=== PATIENT | male | born 1950 | race Caucasian/White ===

== ENCOUNTER → 2016-09-27 | Outpatient (CLI) | payer MEDICARE, OTHER | END | disposition home or self-care (01) | LOC: RAD 15:21 | PROVIDERS: ATTEND Internal Medicine Hematology & Oncology | DX: R07.81 Pleurodynia (principal); R07.89 Other chest pain; C43.9 Malignant melanoma of skin, unspecified | CPT/HCPCS: 71020 ==

== ENCOUNTER → 2016-11-14 | Outpatient (CLI) | payer MEDICARE, OTHER ==
[~2016-11-14] MED LIST: OMNIPAQUE 350 MG/ML, 100ML BOTTLE ONE
== END | disposition home or self-care (01) ==
LOC: CFH 07:47
PROVIDERS: ATTEND Internal Medicine Hematology & Oncology
DX: C43.9 Malignant melanoma of skin, unspecified (principal); R91.8 Other nonspecific abnormal finding of lung field; K80.20 Calculus of gallbladder without cholecystitis without obstruction
CPT/HCPCS: 71260; 74177; Q9967

== ENCOUNTER → 2017-01-08 | Outpatient (CLI) | payer MEDICARE, OTHER ==
[~2017-01-08] MED LIST changes: +GADOBUTROL 10 MMOL/10 ML PFS ONE; -OMNIPAQUE 350 MG/ML, 100ML BOTTLE ONE
== END | disposition home or self-care (01) ==
LOC: CFH 06:36
PROVIDERS: ATTEND Internal Medicine Hematology & Oncology
DX: C43.9 Malignant melanoma of skin, unspecified (principal); D18.09 Hemangioma of other sites; R90.82 White matter disease, unspecified
CPT/HCPCS: 70553; A9585

== ENCOUNTER → 2017-03-08 | Outpatient (CLI) | payer MEDICARE, OTHER ==
[~2017-03-08] MED LIST changes: -GADOBUTROL 10 MMOL/10 ML PFS ONE; +OMNIPAQUE 350 MG/ML, 100ML BOTTLE ONE
== END | disposition home or self-care (01) ==
LOC: CFH 12:42
PROVIDERS: ATTEND Internal Medicine Hematology & Oncology
DX: R91.8 Other nonspecific abnormal finding of lung field (principal); K76.9 Liver disease, unspecified; K76.0 Fatty (change of) liver, not elsewhere classified; I70.0 Atherosclerosis of aorta; K82.8 Other specified diseases of gallbladder
CPT/HCPCS: 71260; 74177; Q9967

== ENCOUNTER → 2017-03-20 | Outpatient (CLI) | payer MEDICARE, OTHER | END | disposition home or self-care (01) | LOC: RAD 12:36 | PROVIDERS: ATTEND Internal Medicine Hematology & Oncology | DX: C45.9 Mesothelioma, unspecified (principal); C43.9 Malignant melanoma of skin, unspecified | CPT/HCPCS: 36598; 76000; J1642 ==

== ENCOUNTER → 2017-07-23 | Outpatient (CLI) | payer MEDICARE, OTHER | END | disposition home or self-care (01) | LOC: RAD 08:38 | PROVIDERS: ATTEND Internal Medicine Hematology & Oncology | DX: K80.20 Calculus of gallbladder without cholecystitis without obstruction (principal); R91.8 Other nonspecific abnormal finding of lung field; K76.0 Fatty (change of) liver, not elsewhere classified; I70.0 Atherosclerosis of aorta; N40.0 Benign prostatic hyperplasia without lower urinary tract symptoms | CPT/HCPCS: 71260; 74177; Q9967 ==

== ENCOUNTER 2017-10-13 08:45 | Inpatient (IN) | payer MEDICARE ==
[~2017-10-13] VITALS: Ht 177.8 cm; Wt 85.0 kg
[2017-10-13] MEDS ORDERED: OMEP-110 PO (09:17)
[2017-10-13] MEDS ORDERED: GEMF600T3 PO (09:17)
[2017-10-13] MEDS ORDERED: LISI1TAB5 PO (09:17)
[2017-10-13] MEDS ORDERED: NIVO240V IV (09:17)
[2017-10-13] MEDS ORDERED: GLIM4TAB2 PO (09:17)
[2017-10-13] MEDS ORDERED: CHOL200021 PO (09:17)
[2017-10-13] MEDS ORDERED: MAGN400T36 PO (09:17)
[2017-10-13] MEDS ORDERED: GLUC-20 PO (09:17)
[2017-10-13] MEDS ORDERED: INSU100V8 SQ (09:17)
[2017-10-13] MEDS ORDERED: METF500T4 PO (09:17)
[2017-10-13] MEDS ORDERED: SITA100T PO (09:17)
[2017-10-13] MEDS ORDERED: ONDANSETRON ODT 4 MG ONE (10:04)
[2017-10-13 10:11] LABS: BASOPHILS # (AUTO) 0.01 x10^3/uL (0-0.1); BASOPHILS % (AUTO) 0 % (0-1); EOSINOPHILS # (AUTO) 0.05 x10^3/uL (0-0.4); EOSINOPHILS % (AUTO) 0 % (1-7); LYMPHOCYTES # (AUTO) 1.01 x10^3/uL (1-3.4); LYMPHOCYTES % (AUTO) 8 % (22-44); MD NO; MEAN CORPUSCULAR HEMOGLOBIN 28.5 pg (27.5-34.5); MEAN CORPUSCULAR HGB CONC 33.4 g/dL (33.2-36.2); MEAN CORPUSCULAR VOLUME 85.3 fL (81-97); MEAN PLATELET VOLUME 9.8 fL (7.4-10.4); MONOCYTES # (AUTO) 0.34 x10^3/uL (0.2-0.8); MONOCYTES % (AUTO) 3 % (2-9); NEUTROPHILS # (AUTO) 11.96 x10^3/uL (1.8-6.8); NEUTROPHILS % (AUTO) 89 % (42-75); PLATELET COUNT 250 x10^3/uL (130-400); RED BLOOD COUNT 5.31 x10^6/uL (4.38-5.82); RED CELL DISTRIBUTION WIDTH 14.1 % (9.4-14.8)
[2017-10-13 10:20] LABS: ALBUMIN 3.9 g/dL (3.4-5.0); ANION GAP 11 mmol/L (5-15); CALCIUM 9.5 mg/dL (8.5-10.1); CHLORIDE 103 mmol/L (98-107); CREATININE 1.36 mg/dL (0.7-1.3)
[2017-10-13] MEDS ORDERED: MECLIZINE CHEWABLE 25 MG TAB ONE (10:53)
[2017-10-13] MEDS ORDERED: DIAZEPAM 5 MG/ML, 2ML IVPush ONE (11:00)
[2017-10-13] MEDS ORDERED: ONDANSETRON ODT 4 MG PO ONE (11:00)
[2017-10-13] MEDS ORDERED: MECLIZINE CHEWABLE 25 MG TAB PO ONE (11:00)
[2017-10-13] MEDS ORDERED: SODIUM CHLORIDE 0.9% 1,000 ML IV ONE ×3 (11:00→12:02)
[2017-10-13] MEDS ORDERED: SODIUM CHLORIDE FLUSH 10ML SYR IVF PRN (12:00)
[2017-10-13] MEDS ORDERED: NS + 20MEQ KCL 1,000 ML IV SCH (13:09)
[2017-10-13] MEDS ORDERED: POLYETHYLENE GLYCOL 17 GM PACKET PO PRN (13:30)
[2017-10-13] MEDS ORDERED: MECLIZINE 12.5 MG TABLET PO PRN (13:30)
[2017-10-13] MEDS ORDERED: ACETAMINOPHEN 325 MG TABLET PO PRN (13:30)
[2017-10-13] MEDS ORDERED: morphine SULFATE 10 MG/ML, 1ML IVPush PRN (13:30)
[2017-10-13] MEDS ORDERED: GLUCAGON 1 MG IM PRN (13:30)
[2017-10-13] MEDS ORDERED: DOCUSATE 100 MG CAPSULE PO PRN (13:30)
[2017-10-13] MEDS ORDERED: HYDROcodone/APAP 5/325 TABLET PO PRN (13:30)
[2017-10-13] MEDS ORDERED: DEXTROSE 50%, 50ML SYRINGE IVPush PRN (13:30)
[2017-10-13] MEDS ORDERED: ONDANSETRON 2MG/ML, 2ML IVPush PRN (13:30)
[2017-10-13] MEDS: ENOXAPARIN 40 MG/0.4 ML SQ SCH (13:30)
[2017-10-13] MEDS ORDERED: DEXTROSE 4 GM TAB.CHEW PO PRN (13:30)
[2017-10-13] MEDS: INSULIN GLARGINE 100 UNITS/ML, PEN SQ-INSULIN SCH ×2 (13:30→21:37)
[2017-10-13] MEDS ORDERED: GADOBUTROL 7.5 MMOL/7.5 ML PFS ONE (14:29)
[2017-10-13 14:42] VITALS: BP 145/69
[2017-10-13] MEDS: INSULIN LISPRO 100 UNITS/ML, PEN SQ-INSULIN SCH ×2 (15:44→21:00)
[2017-10-13 19:21] VITALS: BP 138/80
[2017-10-13 19:22] VITALS: BP 138/80
[2017-10-13] MEDS: FAMOTIDINE 20 MG TABLET PO SCH (21:35)
[2017-10-13] MEDS: GEMFIBROZIL 600 MG TABLET PO SCH (21:35)
[2017-10-13] MEDS: metFORMIN 500 MG TABLET PO SCH (21:36)
[2017-10-13] MEDS: SODIUM CHLORIDE FLUSH 10ML SYR IVF SCH (21:36)
[2017-10-13 21:55] LABS: MICROSCOPIC NOT IND
[2017-10-13 22:03] LABS: CULTURE INDICATED? NO
[2017-10-14 01:01] VITALS: BP 147/83
[2017-10-14 05:55] LABS: ANION GAP 8 mmol/L (5-15); CHLORIDE 109 mmol/L (98-107); CREATININE 0.92 mg/dL (0.7-1.3)
[2017-10-14 06:41] VITALS: BP 148/84
[2017-10-14] MEDS: INSULIN LISPRO 100 UNITS/ML, PEN SQ-INSULIN SCH ×3 (07:00→16:00)
[2017-10-14] MEDS: metFORMIN 500 MG TABLET PO SCH (08:36)
[2017-10-14] MEDS: FAMOTIDINE 20 MG TABLET PO SCH (08:36)
[2017-10-14] MEDS: GEMFIBROZIL 600 MG TABLET PO SCH (08:36)
[2017-10-14] MEDS: SODIUM CHLORIDE FLUSH 10ML SYR IVF SCH (08:38)
[2017-10-14] MEDS ORDERED: SITAGLIPTIN 50MG TABLET PO SCH (09:00)
[2017-10-14] MEDS ORDERED: SENNA/DOCUSATE TABLET PO SCH (09:00)
[2017-10-14] MEDS ORDERED: GLIMEPIRIDE 4 MG TABLET PO SCH (09:00)
[2017-10-14] MEDS ORDERED: MAGNESIUM OXIDE 400 MG TABLET PO SCH (09:00)
[2017-10-14] MEDS: ENOXAPARIN 40 MG/0.4 ML SQ SCH (11:48)
[2017-10-14 13:14] VITALS: BP 156/88
[2017-10-14] MEDS ORDERED: EXEN2PEN SQ-INSULIN (16:17)
== END 2017-10-14 16:30 | disposition home or self-care (01) | DRG 91 ==
LOC: ED 11:51 → EDIP 12:00 → 3NW 14:39
PROVIDERS: ADMIT Hospitalist; ATTEND Family Medicine
DX: R27.0 Ataxia, unspecified (principal); N17.0 Acute kidney failure with tubular necrosis; C43.9 Malignant melanoma of skin, unspecified; Z66 Do not resuscitate; E78.5 Hyperlipidemia, unspecified; D18.00 Hemangioma unspecified site; E78.00 Pure hypercholesterolemia, unspecified; E11.65 Type 2 diabetes mellitus with hyperglycemia; Z85.820 Personal history of malignant melanoma of skin
CPT/HCPCS: 36415; 70450; 70553; 71045; 80048; 81003; 82040; 82962; 83735; 85025; 93005; A9585; J3480; Q0162; 92523-GN; J7030

== ENCOUNTER → 2017-10-23 | Outpatient (CLI) | payer MEDICARE ==
[~2017-10-23] MED LIST changes: +CHOL200021 PO; +EXEN2PEN SQ-INSULIN; +GEMF600T3 PO; +GLIM4TAB2 PO; +GLUC-20 PO; +INSU100V8 SQ; +LISI1TAB5 PO; +MAGN400T36 PO; +METF500T4 PO; +NIVO240V IV; +OMEP-110 PO; -OMNIPAQUE 350 MG/ML, 100ML BOTTLE ONE; +SITA100T PO
== END ==
LOC: CFH 11:15
PROVIDERS: ATTEND Internal Medicine Hematology & Oncology
DX: Z02.9 Encounter for administrative examinations, unspecified (principal)

== ENCOUNTER → 2017-11-06 | Outpatient (CLI) | payer MEDICARE ==
[~2017-11-06] MED LIST changes: +OMNIPAQUE 350 MG/ML, 100ML BOTTLE ONE
== END | disposition home or self-care (01) ==
LOC: RAD 14:43
PROVIDERS: ATTEND Internal Medicine Hematology & Oncology
DX: C43.9 Malignant melanoma of skin, unspecified (principal); R91.8 Other nonspecific abnormal finding of lung field
CPT/HCPCS: 71260; 74177; J1642; Q9967

== ENCOUNTER 2017-12-25 12:51 | Inpatient (IN) | payer MEDICARE ==
[~2017-12-25] VITALS: Ht 177.8 cm; Wt 82.6 kg
[~2017-12-25 12:51] MED LIST changes: -METF500T4 PO; +METF500T5 PO; -OMNIPAQUE 350 MG/ML, 100ML BOTTLE ONE
[2017-12-25] MEDS ORDERED: OMNIPAQUE 350 MG/ML, 100ML BOTTLE ONE (13:14)
[2017-12-25] MEDS ORDERED: ALTEPLASE 8 MG in SYRINGE 1 EA IV ONE ×2 (13:30→14:30)
[2017-12-25] MEDS ORDERED: ALTEPLASE IV ONE (13:30)
[2017-12-25 13:31] LABS: BASOPHILS # (AUTO) 0.08 x10^3/uL (0-0.1); BASOPHILS % (AUTO) 1 % (0-1); EOSINOPHILS # (AUTO) 0.36 x10^3/uL (0-0.4); EOSINOPHILS % (AUTO) 5 % (1-7); LYMPHOCYTES # (AUTO) 2.07 x10^3/uL (1-3.4); LYMPHOCYTES % (AUTO) 26 % (22-44); MD NO; MEAN CORPUSCULAR VOLUME 84.8 fL (81-97); MEAN PLATELET VOLUME 9.9 fL (7.4-10.4); MONOCYTES # (AUTO) 0.57 x10^3/uL (0.2-0.8); MONOCYTES % (AUTO) 7 % (2-9); NEUTROPHILS # (AUTO) 4.81 x10^3/uL (1.8-6.8); NEUTROPHILS % (AUTO) 61 % (42-75); PLATELET COUNT 251 x10^3/uL (130-400); RED BLOOD COUNT 5.17 x10^6/uL (4.38-5.82); RED CELL DISTRIBUTION WIDTH 14.9 % (9.4-14.8)
[2017-12-25 13:38] LABS: INTERNATIONAL NORMALIZED RATIO 0.97 (0.93-1.1)
[2017-12-25] MEDS ORDERED: ALTEPLASE 1 MG/ML ONE (13:43)
[2017-12-25] MEDS ORDERED: ACETAMINOPHEN 325 MG TABLET PO PRN (15:00)
[2017-12-25] MEDS ORDERED: LABETALOL 5MG/ML, 20ML IVPush PRN (15:00)
[2017-12-25] MEDS ORDERED: POLYETHYLENE GLYCOL 17 GM PACKET PO PRN (15:00)
[2017-12-25] MEDS ORDERED: ENALAPRILAT 1.25 MG/ML, 2ML IVPush PRN (15:00)
[2017-12-25] MEDS ORDERED: NIVOLUMAB 240 MG IV SCH (15:00)
[2017-12-25] MEDS ORDERED: ONDANSETRON ODT 4 MG PO PRN (15:00)
[2017-12-25] MEDS: INSULIN LISPRO 100 UNITS/ML, PEN SQ-INSULIN SCH ×2 (16:00→20:50)
[2017-12-25 16:16] VITALS: BP 144/76
[2017-12-25] MEDS: SODIUM CHLORIDE 0.9% 1,000 ML IV SCH (16:55)
[2017-12-25] MEDS: GEMFIBROZIL 600 MG TABLET PO SCH (17:44)
[2017-12-25] MEDS: ATORVASTATIN 40 MG TABLET PO SCH ×3 (20:50→21:34)
[2017-12-25] MEDS: FAMOTIDINE 20 MG TABLET PO SCH (20:50)
[2017-12-26] MEDS: SODIUM CHLORIDE 0.9% 1,000 ML IV SCH (02:27)
[2017-12-26 04:00] VITALS: BP 134/74
[2017-12-26 05:49] LABS: BASOPHILS # (AUTO) 0.03 x10^3/uL (0-0.1); BASOPHILS % (AUTO) 0 % (0-1); EOSINOPHILS # (AUTO) 0.41 x10^3/uL (0-0.4); EOSINOPHILS % (AUTO) 5 % (1-7); LYMPHOCYTES # (AUTO) 1.18 x10^3/uL (1-3.4); LYMPHOCYTES % (AUTO) 16 % (22-44); MD NO; MEAN CORPUSCULAR HEMOGLOBIN 28.8 pg (27.5-34.5); MEAN CORPUSCULAR HGB CONC 33.7 g/dL (33.2-36.2); MEAN CORPUSCULAR VOLUME 85.5 fL (81-97); MEAN PLATELET VOLUME 10.3 fL (7.4-10.4); MONOCYTES # (AUTO) 0.46 x10^3/uL (0.2-0.8); MONOCYTES % (AUTO) 6 % (2-9); NEUTROPHILS # (AUTO) 5.57 x10^3/uL (1.8-6.8); NEUTROPHILS % (AUTO) 73 % (42-75); PLATELET COUNT 233 x10^3/uL (130-400); RED BLOOD COUNT 5.09 x10^6/uL (4.38-5.82)
[2017-12-26 05:54] LABS: ALBUMIN 3.5 g/dL (3.4-5.0); CALCIUM 9.2 mg/dL (8.5-10.1); CHLORIDE 106 mmol/L (98-107)
[2017-12-26 06:07] LABS: ALANINE AMINOTRANSFERASE 29 U/L (12-78); ALKALINE PHOSPHATASE 57 U/L (45-117); ANION GAP 7 mmol/L (5-15); BILIRUBIN,TOTAL 0.5 mg/dL (0.2-1.0); CHOLESTEROL, TOTAL 161 mg/dL (140-239); CREATININE 1.04 mg/dL (0.7-1.3); HDL CHOL % 17 % (26-37); HDL CHOLESTEROL (DIRECT) 27 mg/dL (40-60); LDL CHOLESTEROL,CALCULATED 83 mg/dL (54-169); LDL/HDL RATIO 3.1 (0.5-3.0); TOTAL PROTEIN 6.5 g/dL (6.4-8.2); TRIGLYCERIDES 253 mg/dL (50-200); VLDL CHOLESTEROL 51 mg/dL (0-25)
[2017-12-26] MEDS ORDERED: LISINOPRIL 20 MG TABLET PO SCH (09:00)
[2017-12-26] MEDS ORDERED: HYDROCHLOROTHIAZIDE 12.5 MG CAPSULE PO SCH (09:00)
[2017-12-26] MEDS: SENNA/DOCUSATE TABLET PO SCH (09:00)
[2017-12-26] MEDS: INSULIN LISPRO 100 UNITS/ML, PEN SQ-INSULIN SCH ×4 (09:42→21:41)
[2017-12-26] MEDS: GEMFIBROZIL 600 MG TABLET PO SCH ×2 (09:48→17:31)
[2017-12-26] MEDS: FAMOTIDINE 20 MG TABLET PO SCH ×2 (09:48→21:34)
[2017-12-26] MEDS: CHOLECALCIFEROL 1,000 UNIT TABLET PO SCH (09:49)
[2017-12-26] MEDS ORDERED: GADOBUTROL 10 MMOL/10 ML PFS ONE (10:21)
[2017-12-26] MEDS: ASPIRIN 81 MG TABLET EC PO SCH (16:35)
[2017-12-26] MEDS: ATORVASTATIN 40 MG TABLET PO SCH (21:00)
[2017-12-27] VITALS: BP 126/76
[2017-12-27 07:42] LABS: BASOPHILS # (AUTO) 0.03 x10^3/uL (0-0.1); BASOPHILS % (AUTO) 0 % (0-1); EOSINOPHILS # (AUTO) 0.28 x10^3/uL (0-0.4); EOSINOPHILS % (AUTO) 3 % (1-7); LYMPHOCYTES # (AUTO) 1.52 x10^3/uL (1-3.4); LYMPHOCYTES % (AUTO) 18 % (22-44); MD NO; MEAN CORPUSCULAR HEMOGLOBIN 28.8 pg (27.5-34.5); MEAN CORPUSCULAR HGB CONC 33.9 g/dL (33.2-36.2); MEAN CORPUSCULAR VOLUME 84.9 fL (81-97); MEAN PLATELET VOLUME 9.8 fL (7.4-10.4); MONOCYTES # (AUTO) 0.59 x10^3/uL (0.2-0.8); MONOCYTES % (AUTO) 7 % (2-9); NEUTROPHILS # (AUTO) 5.93 x10^3/uL (1.8-6.8); NEUTROPHILS % (AUTO) 71 % (42-75); PLATELET COUNT 250 x10^3/uL (130-400); RED BLOOD COUNT 5.47 x10^6/uL (4.38-5.82); RED CELL DISTRIBUTION WIDTH 15.2 % (9.4-14.8)
[2017-12-27 07:52] LABS: ANION GAP 9 mmol/L (5-15); CALCIUM 9.7 mg/dL (8.5-10.1); CHLORIDE 103 mmol/L (98-107); CREATININE 1.16 mg/dL (0.7-1.3)
[2017-12-27 08:01] VITALS: BP 124/74
[2017-12-27] MEDS: GEMFIBROZIL 600 MG TABLET PO SCH ×2 (08:34→16:50)
[2017-12-27] MEDS: CHOLECALCIFEROL 1,000 UNIT TABLET PO SCH (08:35)
[2017-12-27] MEDS: FAMOTIDINE 20 MG TABLET PO SCH ×2 (08:35→21:21)
[2017-12-27] MEDS: INSULIN LISPRO 100 UNITS/ML, PEN SQ-INSULIN SCH ×4 (08:37→21:20)
[2017-12-27] MEDS: SENNA/DOCUSATE TABLET PO SCH (08:37)
[2017-12-27 13:06] VITALS: BP 146/78
[2017-12-27] MEDS: ASPIRIN 81 MG TABLET EC PO SCH (16:51)
[2017-12-27 20:05] VITALS: BP 132/78
[2017-12-27] MEDS: ATORVASTATIN 40 MG TABLET PO SCH (21:21)
[2017-12-28 02:00] VITALS: BP 131/79
[2017-12-28 07:36] VITALS: BP 132/81
[2017-12-28] MEDS: CHOLECALCIFEROL 1,000 UNIT TABLET PO SCH (08:52)
[2017-12-28] MEDS: GEMFIBROZIL 600 MG TABLET PO SCH ×2 (08:52→16:36)
[2017-12-28] MEDS: FAMOTIDINE 20 MG TABLET PO SCH ×2 (08:52→20:21)
[2017-12-28] MEDS: SENNA/DOCUSATE TABLET PO SCH (08:53)
[2017-12-28] MEDS: INSULIN LISPRO 100 UNITS/ML, PEN SQ-INSULIN SCH ×4 (08:53→20:21)
[2017-12-28] MEDS ORDERED: LISI-167 PO (13:02)
[2017-12-28] MEDS ORDERED: ASPI-621 PO (13:02)
[2017-12-28] MEDS ORDERED: ATOR40TA78 PO (13:02)
[2017-12-28 13:55] VITALS: BP 140/83
[2017-12-28] MEDS: LISINOPRIL 5 MG TABLET PO SCH (13:58)
[2017-12-28] MEDS: ASPIRIN 81 MG TABLET EC PO SCH (16:36)
[2017-12-28] MEDS ORDERED: PNEUMOCOCCAL 23 VACCINE IM-VACC ONE (17:00)
[2017-12-28 19:58] VITALS: BP 122/81
[2017-12-28] MEDS: ATORVASTATIN 40 MG TABLET PO SCH (20:21)
[2017-12-29 01:49] VITALS: BP 100/62
[2017-12-29 08:06] VITALS: BP 116/75
[2017-12-29] MEDS: GEMFIBROZIL 600 MG TABLET PO SCH ×2 (08:27→16:34)
[2017-12-29] MEDS: FAMOTIDINE 20 MG TABLET PO SCH ×2 (08:27→19:40)
[2017-12-29] MEDS: CHOLECALCIFEROL 1,000 UNIT TABLET PO SCH (08:27)
[2017-12-29] MEDS: INSULIN LISPRO 100 UNITS/ML, PEN SQ-INSULIN SCH ×4 (08:28→19:41)
[2017-12-29] MEDS: LISINOPRIL 5 MG TABLET PO SCH (08:28)
[2017-12-29] MEDS: SENNA/DOCUSATE TABLET PO SCH (08:29)
[2017-12-29] MEDS ORDERED: ARTIFICIAL TEARS 15 DROP/ML BOTTLE EACHEYE PRN (14:00)
[2017-12-29 14:30] VITALS: BP_SYST 105; BP_SYST 122; BP_DIAS 66; BP_DIAS 76
[2017-12-29] MEDS: ASPIRIN 81 MG TABLET EC PO SCH (16:34)
[2017-12-29 18:47] VITALS: BP 124/78
[2017-12-29] MEDS: ATORVASTATIN 40 MG TABLET PO SCH (19:41)
[2017-12-30 00:13] VITALS: BP 125/78
[2017-12-30 06:55] VITALS: BP 129/81
[2017-12-30] MEDS: INSULIN LISPRO 100 UNITS/ML, PEN SQ-INSULIN SCH ×4 (08:08→20:44)
[2017-12-30] MEDS: GEMFIBROZIL 600 MG TABLET PO SCH ×2 (08:08→16:53)
[2017-12-30] MEDS: FAMOTIDINE 20 MG TABLET PO SCH ×2 (08:08→20:44)
[2017-12-30] MEDS: CHOLECALCIFEROL 1,000 UNIT TABLET PO SCH (08:08)
[2017-12-30] MEDS: LISINOPRIL 5 MG TABLET PO SCH (08:08)
[2017-12-30] MEDS: SENNA/DOCUSATE TABLET PO SCH (08:09)
[2017-12-30 12:02] VITALS: BP 133/77
[2017-12-30] MEDS: ASPIRIN 81 MG TABLET EC PO SCH (16:53)
[2017-12-30 18:45] VITALS: BP 127/72
[2017-12-30] MEDS: ATORVASTATIN 40 MG TABLET PO SCH (20:44)
[2017-12-31 02:01] VITALS: BP 128/80
[2017-12-31 07:22] VITALS: BP 145/84
[2017-12-31] MEDS: INSULIN LISPRO 100 UNITS/ML, PEN SQ-INSULIN SCH ×4 (08:12→21:12)
[2017-12-31] MEDS: FAMOTIDINE 20 MG TABLET PO SCH ×2 (08:13→21:12)
[2017-12-31] MEDS: CHOLECALCIFEROL 1,000 UNIT TABLET PO SCH (08:13)
[2017-12-31] MEDS: GEMFIBROZIL 600 MG TABLET PO SCH ×2 (08:13→16:17)
[2017-12-31] MEDS: LISINOPRIL 5 MG TABLET PO SCH (08:13)
[2017-12-31] MEDS: SENNA/DOCUSATE TABLET PO SCH (09:00)
[2017-12-31 12:28] VITALS: BP 144/76
[2017-12-31] MEDS: ASPIRIN 81 MG TABLET EC PO SCH (16:17)
[2017-12-31 19:56] VITALS: BP 125/75
[2017-12-31] MEDS: ATORVASTATIN 40 MG TABLET PO SCH (21:12)
[2018-01-01 03:31] VITALS: BP 159/84
[2018-01-01 06:59] VITALS: BP 148/73
[2018-01-01] MEDS: CHOLECALCIFEROL 1,000 UNIT TABLET PO SCH (07:39)
[2018-01-01] MEDS: LISINOPRIL 5 MG TABLET PO SCH (07:39)
[2018-01-01] MEDS: FAMOTIDINE 20 MG TABLET PO SCH (07:40)
[2018-01-01] MEDS: GEMFIBROZIL 600 MG TABLET PO SCH (07:40)
[2018-01-01] MEDS: SENNA/DOCUSATE TABLET PO SCH (07:40)
[2018-01-01] MEDS: INSULIN LISPRO 100 UNITS/ML, PEN SQ-INSULIN SCH ×2 (07:44→11:49)
[2018-01-01 12:29] VITALS: BP 106/73
== END 2018-01-01 14:50 | DRG 62 ==
LOC: ED 13:01 → EDIP 13:44 → CCU 15:03 → 4EST 12-26 23:52
PROVIDERS: ADMIT Internal Medicine; ATTEND Internal Medicine
DX: I63.9 Cerebral infarction, unspecified (principal); G81.91 Hemiplegia, unspecified affecting right dominant side; C43.9 Malignant melanoma of skin, unspecified; E11.9 Type 2 diabetes mellitus without complications; E78.5 Hyperlipidemia, unspecified; I10 Essential (primary) hypertension; C43.59 Malignant melanoma of other part of trunk; K21.9 Gastro-esophageal reflux disease without esophagitis; I35.8 Other nonrheumatic aortic valve disorders; E55.9 Vitamin D deficiency, unspecified; D18.02 Hemangioma of intracranial structures; R29.810 Facial weakness; Z85.820 Personal history of malignant melanoma of skin; Z79.82 Long term (current) use of aspirin; Z92.21 Personal history of antineoplastic chemotherapy; Z79.899 Other long term (current) drug therapy; Z80.8 Family history of malignant neoplasm of other organs or systems
CPT/HCPCS: 36415; 70450; 70496; 70498; 70553; 80048; 80053; 80061; 82962; 84443; 85025; 85610; 85730; 87081; 90732; 93005; 93306; 96365; 96375; A9585; J2997; Q9967; 92523-GN; J1815; J7030

== ENCOUNTER 2018-02-04 11:54 | Emergency (ER) | payer MEDICARE ==
[~2018-02-04] VITALS: Ht 177.8 cm; Wt 84.0 kg
[~2018-02-04 11:54] MED LIST changes: +ASPI-621 PO; +ATOR40TA78 PO; +LISI-167 PO
[2018-02-04] MEDS ORDERED: SODIUM CHLORIDE FLUSH 10ML SYR IVF ONE (13:00)
[2018-02-04 13:13] LABS: BASOPHILS # (AUTO) 0.07 x10^3/uL (0-0.1); BASOPHILS % (AUTO) 1 % (0-1); EOSINOPHILS % (AUTO) 4 % (1-7); LYMPHOCYTES # (AUTO) 2.14 x10^3/uL (1-3.4); LYMPHOCYTES % (AUTO) 27 % (22-44); MD NO; MEAN CORPUSCULAR HEMOGLOBIN 28.6 pg (27.5-34.5); MEAN CORPUSCULAR HGB CONC 33.8 g/dL (33.2-36.2); MEAN CORPUSCULAR VOLUME 84.9 fL (81-97); MONOCYTES # (AUTO) 0.52 x10^3/uL (0.2-0.8); MONOCYTES % (AUTO) 7 % (2-9); NEUTROPHILS # (AUTO) 4.85 x10^3/uL (1.8-6.8); NEUTROPHILS % (AUTO) 62 % (42-75); PLATELET COUNT 267 x10^3/uL (130-400); RED BLOOD COUNT 5.44 x10^6/uL (4.38-5.82); RED CELL DISTRIBUTION WIDTH 14.8 % (9.4-14.8)
[2018-02-04 13:23] LABS: PROTHROMBIN TIME 10.3 Seconds (9.6-11.5)
[2018-02-04 13:26] LABS: ALBUMIN 3.9 g/dL (3.4-5.0); ANION GAP 10 mmol/L (5-15); CALCIUM 9.1 mg/dL (8.5-10.1); CHLORIDE 108 mmol/L (98-107)
[2018-02-04 13:33] LABS: CREATININE 1.21 mg/dL (0.7-1.3); TROPONIN I < 0.015 ng/mL (0.000-0.045)
[2018-02-04] MEDS ORDERED: OMNIPAQUE 350 MG/ML, 100ML BOTTLE ONE (14:11)
[2018-02-04 14:59] VITALS: BP 114/75
== END 2018-02-04 15:01 | disposition home or self-care (01) ==
LOC: ED 14:55
DX: R06.00 Dyspnea, unspecified (principal); C43.9 Malignant melanoma of skin, unspecified; I10 Essential (primary) hypertension; E11.9 Type 2 diabetes mellitus without complications; Z86.73 Personal history of transient ischemic attack (TIA), and cerebral infarction without residual deficits
CPT/HCPCS: 36415; 71046; 71275; 80048; 82040; 84484; 85025; 85610; 85730; 93005; 99285; Q9967

== ENCOUNTER 2018-02-11 12:42 | Inpatient (IN) | payer MEDICARE ==
[~2018-02-11] VITALS: Ht 175.3 cm; Wt 87.4 kg
[2018-02-11] MEDS ORDERED: SODIUM CHLORIDE FLUSH 10ML SYR IVF ONE (13:30)
[2018-02-11] MEDS ORDERED: SODIUM CHLORIDE 0.9% 1,000ML IVBOLUS ONE (13:30)
[2018-02-11 13:48] LABS: BASOPHILS # (AUTO) 0.07 x10^3/uL (0-0.1); BASOPHILS % (AUTO) 1 % (0-1); EOSINOPHILS # (AUTO) 0.33 x10^3/uL (0-0.4); EOSINOPHILS % (AUTO) 4 % (1-7); LYMPHOCYTES # (AUTO) 2.15 x10^3/uL (1-3.4); LYMPHOCYTES % (AUTO) 23 % (22-44); MD NO; MEAN CORPUSCULAR HEMOGLOBIN 29.3 pg (27.5-34.5); MEAN CORPUSCULAR HGB CONC 34.3 g/dL (33.2-36.2); MEAN CORPUSCULAR VOLUME 85.4 fL (81-97); MEAN PLATELET VOLUME 10.3 fL (7.4-10.4); MONOCYTES # (AUTO) 0.64 x10^3/uL (0.2-0.8); MONOCYTES % (AUTO) 7 % (2-9); NEUTROPHILS # (AUTO) 6.06 x10^3/uL (1.8-6.8); NEUTROPHILS % (AUTO) 66 % (42-75); PLATELET COUNT 299 x10^3/uL (130-400); RED BLOOD COUNT 5.47 x10^6/uL (4.38-5.82); RED CELL DISTRIBUTION WIDTH 14.3 % (9.4-14.8)
[2018-02-11 13:53] LABS: PROTHROMBIN TIME 10.4 Seconds (9.6-11.5)
[2018-02-11 13:54] LABS: ALANINE AMINOTRANSFERASE 25 U/L (12-78); ALBUMIN 3.7 g/dL (3.4-5.0); ANION GAP 11 mmol/L (5-15); CALCIUM 9.3 mg/dL (8.5-10.1); CHLORIDE 105 mmol/L (98-107); CREATININE 1.58 mg/dL (0.7-1.3)
[2018-02-11 13:58] LABS: ALKALINE PHOSPHATASE 65 U/L (45-117); BILIRUBIN,TOTAL 0.2 mg/dL (0.2-1.0); TOTAL PROTEIN 7.3 g/dL (6.4-8.2); TROPONIN I < 0.015 ng/mL (0.000-0.045)
[2018-02-11] MEDS ORDERED: ASPIRIN 81 MG TABLET CHEW ONE ×2 (14:19→14:28)
[2018-02-11] MEDS ORDERED: ASPIRIN 81 MG TABLET CHEW PO ONE (14:30)
[2018-02-11 14:44] LABS: MICROSCOPIC NOT IND
[2018-02-11 14:50] LABS: CULTURE INDICATED? NO
[2018-02-11 15:56] VITALS: BP 153/89
[2018-02-11] MEDS ORDERED: KETOROLAC 30 MG/1 ML IV PRN (16:30)
[2018-02-11] MEDS ORDERED: ONDANSETRON 2MG/ML, 2ML IVPush PRN (16:30)
[2018-02-11] MEDS ORDERED: GUAIFENESIN/COD200MG-20MG/10ML LIQUID PO PRN (16:30)
[2018-02-11] MEDS ORDERED: morphine SULFATE 10 MG/ML, 1ML IVPush PRN (16:30)
[2018-02-11] MEDS ORDERED: DOCUSATE 100 MG CAPSULE PO PRN (16:30)
[2018-02-11] MEDS: HEPARIN 5,000 UNITS/ML, 1ML SQ SCH (17:26)
[2018-02-11] MEDS: SODIUM CHLORIDE 0.9% 1,000 ML IV SCH (17:26)
[2018-02-11 20:40] VITALS: BP 115/68
[2018-02-11] MEDS: INSULIN GLARGINE 100 UNITS/ML, PEN SQ-INSULIN SCH (21:00)
[2018-02-11] MEDS ORDERED: [UNRECOGNIZED DRUG - OTHER] PO SCH (21:00)
[2018-02-11] MEDS: INSULIN LISPRO 100 UNITS/ML, PEN SQ-INSULIN SCH (21:00)
[2018-02-11] MEDS: ATORVASTATIN 40 MG TABLET PO SCH (22:24)
[2018-02-11] MEDS: GEMFIBROZIL 600 MG TABLET PO SCH (22:25)
[2018-02-12] MEDS: SODIUM CHLORIDE 0.9% 1,000 ML IV SCH ×3 (01:35→18:36)
[2018-02-12] MEDS: HEPARIN 5,000 UNITS/ML, 1ML SQ SCH ×3 (01:35→18:37)
[2018-02-12 01:36] VITALS: BP 121/71
[2018-02-12] MEDS: ASPIRIN 325 MG TABLET EC PO SCH (05:15)
[2018-02-12 05:44] LABS: BASOPHILS # (AUTO) 0.04 x10^3/uL (0-0.1); BASOPHILS % (AUTO) 1 % (0-1); EOSINOPHILS # (AUTO) 0.37 x10^3/uL (0-0.4); EOSINOPHILS % (AUTO) 5 % (1-7); LYMPHOCYTES # (AUTO) 2.62 x10^3/uL (1-3.4); LYMPHOCYTES % (AUTO) 35 % (22-44); MD NO; MEAN CORPUSCULAR HEMOGLOBIN 28.7 pg (27.5-34.5); MEAN CORPUSCULAR HGB CONC 33.8 g/dL (33.2-36.2); MEAN PLATELET VOLUME 10.3 fL (7.4-10.4); MONOCYTES # (AUTO) 0.64 x10^3/uL (0.2-0.8); MONOCYTES % (AUTO) 8 % (2-9); NEUTROPHILS # (AUTO) 3.89 x10^3/uL (1.8-6.8); NEUTROPHILS % (AUTO) 52 % (42-75); PLATELET COUNT 262 x10^3/uL (130-400); RED BLOOD COUNT 5.09 x10^6/uL (4.38-5.82); RED CELL DISTRIBUTION WIDTH 14.3 % (9.4-14.8)
[2018-02-12 05:57] LABS: ANION GAP 7 mmol/L (5-15); CHLORIDE 108 mmol/L (98-107)
[2018-02-12 06:02] LABS: CHOL/HDL RATIO 6.9; CHOLESTEROL, TOTAL 193 mg/dL (140-239); CREATININE 1.08 mg/dL (0.7-1.3); HDL CHOL % 15 % (26-37); HDL CHOLESTEROL (DIRECT) 28 mg/dL (40-60); LDL CHOLESTEROL,CALCULATED 113 mg/dL (54-169); TRIGLYCERIDES 260 mg/dL (50-200); VLDL CHOLESTEROL 52 mg/dL (0-25)
[2018-02-12 06:43] LABS: HEMOGLOBIN A1C 6.2 % (4.2-6.3)
[2018-02-12] MEDS: INSULIN LISPRO 100 UNITS/ML, PEN SQ-INSULIN SCH ×4 (07:00→20:27)
[2018-02-12 07:04] VITALS: BP 134/84
[2018-02-12] MEDS: LISINOPRIL 10 MG TABLET PO SCH (08:19)
[2018-02-12] MEDS: OMEPRAZOLE 20 MG CAPSULE.DR PO SCH (08:19)
[2018-02-12] MEDS: GEMFIBROZIL 600 MG TABLET PO SCH ×2 (08:19→20:18)
[2018-02-12] MEDS: CHOLECALCIFEROL 5,000 UNIT TAB PO SCH (08:19)
[2018-02-12] MEDS: MAGNESIUM OXIDE 400 MG TABLET PO SCH (08:19)
[2018-02-12] MEDS: GLIMEPIRIDE 4 MG TABLET PO SCH (09:00)
[2018-02-12] MEDS: SITAGLIPTIN 50MG TABLET PO SCH (09:00)
[2018-02-12] MEDS ORDERED: POTASSIUM CHLORIDE 20 MEQ TAB.ER.PRT PO ONE (10:30)
[2018-02-12] MEDS: CLOPIDOGREL 75 MG TABLET PO SCH (12:07)
[2018-02-12 15:00] VITALS: BP 103/68
[2018-02-12] MEDS: metFORMIN 500 MG TABLET PO SCH (16:41)
[2018-02-12] MEDS: ATORVASTATIN 40 MG TABLET PO SCH (20:18)
[2018-02-12] MEDS: INSULIN GLARGINE 100 UNITS/ML, PEN SQ-INSULIN SCH (20:27)
[2018-02-12 20:58] VITALS: BP 142/78
[2018-02-13 00:56] VITALS: BP 138/76
[2018-02-13] MEDS: HEPARIN 5,000 UNITS/ML, 1ML SQ SCH ×3 (01:46→17:19)
[2018-02-13] MEDS: SODIUM CHLORIDE 0.9% 1,000 ML IV SCH ×2 (01:46→09:41)
[2018-02-13 04:18] VITALS: BP 143/73
[2018-02-13 04:27] LABS: ANION GAP 6 mmol/L (5-15); CALCIUM 8.8 mg/dL (8.5-10.1); CHLORIDE 112 mmol/L (98-107); CREATININE 0.98 mg/dL (0.7-1.3)
[2018-02-13] MEDS: ASPIRIN 325 MG TABLET EC PO SCH (04:56)
[2018-02-13] MEDS: INSULIN LISPRO 100 UNITS/ML, PEN SQ-INSULIN SCH ×4 (07:00→19:57)
[2018-02-13 08:24] VITALS: BP 136/75
[2018-02-13] MEDS: CHOLECALCIFEROL 5,000 UNIT TAB PO SCH (09:00)
[2018-02-13] MEDS: OMEPRAZOLE 20 MG CAPSULE.DR PO SCH (09:27)
[2018-02-13] MEDS: CLOPIDOGREL 75 MG TABLET PO SCH (09:27)
[2018-02-13] MEDS: LISINOPRIL 10 MG TABLET PO SCH (09:27)
[2018-02-13] MEDS: SITAGLIPTIN 50MG TABLET PO SCH (09:27)
[2018-02-13] MEDS: metFORMIN 500 MG TABLET PO SCH ×2 (09:27→20:17)
[2018-02-13] MEDS: MAGNESIUM OXIDE 400 MG TABLET PO SCH (09:28)
[2018-02-13] MEDS: GEMFIBROZIL 600 MG TABLET PO SCH ×2 (09:28→20:16)
[2018-02-13] MEDS: GLIMEPIRIDE 4 MG TABLET PO SCH (09:28)
[2018-02-13] MEDS: ACETAMINOPHEN 325 MG TABLET PO PRN ×2 (12:02→20:21)
[2018-02-13 13:42] VITALS: BP 124/74
[2018-02-13] MEDS: INSULIN GLARGINE 100 UNITS/ML, PEN SQ-INSULIN SCH (19:57)
[2018-02-13 20:15] VITALS: BP 129/73
[2018-02-13] MEDS: ATORVASTATIN 40 MG TABLET PO SCH (20:16)
[2018-02-14 00:49] VITALS: BP 149/82
[2018-02-14] MEDS: HEPARIN 5,000 UNITS/ML, 1ML SQ SCH ×2 (00:51→09:21)
[2018-02-14] MEDS ORDERED: ASPIRIN 81 MG TABLET EC PO SCH (06:00)
[2018-02-14 06:58] VITALS: BP 144/78
[2018-02-14] MEDS: INSULIN LISPRO 100 UNITS/ML, PEN SQ-INSULIN SCH ×2 (07:58→12:43)
[2018-02-14] MEDS: CLOPIDOGREL 75 MG TABLET PO SCH (09:21)
[2018-02-14] MEDS: LISINOPRIL 10 MG TABLET PO SCH (09:21)
[2018-02-14] MEDS: GLIMEPIRIDE 4 MG TABLET PO SCH (09:21)
[2018-02-14] MEDS: metFORMIN 500 MG TABLET PO SCH (09:21)
[2018-02-14] MEDS: GEMFIBROZIL 600 MG TABLET PO SCH (09:22)
[2018-02-14] MEDS: CHOLECALCIFEROL 5,000 UNIT TAB PO SCH (09:22)
[2018-02-14] MEDS: MAGNESIUM OXIDE 400 MG TABLET PO SCH (09:22)
[2018-02-14] MEDS: OMEPRAZOLE 20 MG CAPSULE.DR PO SCH (09:22)
[2018-02-14] MEDS: SITAGLIPTIN 50MG TABLET PO SCH (09:49)
[2018-02-14] MEDS ORDERED: CLOP75TA PO (10:44)
[2018-02-14] MEDS ORDERED: ASPI-621 PO (10:44)
[2018-02-14] MEDS ORDERED: ENOX40SY4 SQ (10:52)
[2018-02-14 14:12] VITALS: BP 121/76
== END 2018-02-14 16:26 | DRG 64 ==
LOC: ED 14:12 → EDIP 14:13 → ED 14:22 → 4EST 16:02
PROVIDERS: ADMIT Hospitalist; ATTEND Hospitalist
DX: I63.9 Cerebral infarction, unspecified (principal); N17.0 Acute kidney failure with tubular necrosis; G81.94 Hemiplegia, unspecified affecting left nondominant side; I10 Essential (primary) hypertension; C43.9 Malignant melanoma of skin, unspecified; E11.9 Type 2 diabetes mellitus without complications; E78.00 Pure hypercholesterolemia, unspecified; E78.5 Hyperlipidemia, unspecified; E87.6 Hypokalemia; K21.9 Gastro-esophageal reflux disease without esophagitis; Z79.82 Long term (current) use of aspirin; Z86.73 Personal history of transient ischemic attack (TIA), and cerebral infarction without residual deficits; E55.9 Vitamin D deficiency, unspecified
CPT/HCPCS: 36415; 70450; 70551; 71045; 80048; 80053; 80061; 81003; 82962; 83036; 83735; 83880; 84100; 84484; 85025; 85610; 93005; 99285; J1644; J1885; 92523-GN; J1815; J7030

== ENCOUNTER → 2018-03-28 | Outpatient (CLI) | payer MEDICARE ==
[~2018-03-28] MED LIST changes: +CLOP75TA PO; +ENOX40SY4 SQ; -GEMF600T3 PO; +GEMF600T4 PO; +METF500T17 PO; -METF500T5 PO; +OMNIPAQUE 350 MG/ML, 100ML BOTTLE ONE
== END | disposition home or self-care (01) ==
LOC: RAD 10:35
PROVIDERS: ATTEND Internal Medicine Hematology & Oncology
DX: C43.9 Malignant melanoma of skin, unspecified (principal); E11.9 Type 2 diabetes mellitus without complications
CPT/HCPCS: 74177; J1642; Q9967

== ENCOUNTER → 2018-06-17 | Outpatient (CLI) | payer MEDICARE ==
[~2018-06-17] MED LIST changes: -ASPI-621 PO; +ASPI81TA45 PO
== END | disposition home or self-care (01) ==
LOC: RAD 12:36
PROVIDERS: ATTEND Internal Medicine Hematology & Oncology
DX: R91.8 Other nonspecific abnormal finding of lung field (principal)
CPT/HCPCS: 71260; 74177; J1642; Q9967

== ENCOUNTER → 2018-10-18 | Outpatient (CLI) | payer MEDICARE ==
[~2018-10-18] MED LIST changes: -GEMF600T4 PO; +GEMF600T8 PO
== END | disposition home or self-care (01) ==
LOC: RAD 10:57
PROVIDERS: ATTEND Internal Medicine Hematology & Oncology
DX: C43.9 Malignant melanoma of skin, unspecified (principal); I70.0 Atherosclerosis of aorta; R91.1 Solitary pulmonary nodule; K80.20 Calculus of gallbladder without cholecystitis without obstruction; N28.1 Cyst of kidney, acquired
CPT/HCPCS: 71260; 74177; J1642; Q9967

== ENCOUNTER 2019-06-04 08:30 | Outpatient (CLI) | payer MEDICARE ==
[~2019-06-04 08:30] MED LIST changes: -GLIM4TAB2 PO; +GLIM4TAB4 PO; +LISI1TAB19 PO; -LISI1TAB5 PO; -OMNIPAQUE 350 MG/ML, 100ML BOTTLE ONE
[2019-06-05] MEDS ORDERED: REGADENOSON 0.4 MG/5 ML SYRINGE ONE (07:34)
== END 2019-06-04 23:59 | disposition home or self-care (01) ==
LOC: PETCFH 08:30
PROVIDERS: ATTEND Internal Medicine Hematology & Oncology
DX: R91.8 Other nonspecific abnormal finding of lung field (principal); C43.9 Malignant melanoma of skin, unspecified
CPT/HCPCS: 78816; A9552; J2785

== ENCOUNTER → 2019-06-05 | Outpatient (CLI) | payer MEDICARE | END | disposition home or self-care (01) | LOC: CFH 08:02 | PROVIDERS: ATTEND Internal Medicine Cardiovascular Disease | DX: I10 Essential (primary) hypertension (principal); I25.10 Atherosclerotic heart disease of native coronary artery without angina pectoris; R93.1 Abnormal findings on diagnostic imaging of heart and coronary circulation | CPT/HCPCS: 78452; 93017; A9502 ==

== ENCOUNTER → 2019-12-25 | Outpatient (CLI) | payer MEDICARE ==
[~2019-12-25] MED LIST changes: -GLIM4TAB4 PO; +GLIM4TAB8 PO; +OMNIPAQUE 350 MG/ML, 100ML BOTTLE ONE
[2019-12-25 09:31] LABS: CREATININE 1.46 mg/dL (0.7-1.3)
== END | disposition home or self-care (01) ==
LOC: RAD 08:53
PROVIDERS: ATTEND Internal Medicine Hematology & Oncology
DX: C43.9 Malignant melanoma of skin, unspecified (principal); R91.8 Other nonspecific abnormal finding of lung field; M47.9 Spondylosis, unspecified
CPT/HCPCS: 36415; 71260; 74177; 82565; Q9967

== ENCOUNTER → 2020-06-28 | Outpatient (CLI) | payer MEDICARE ==
[~2020-06-28] MED LIST changes: -LISI1TAB19 PO; +LISI1TAB39 PO
[2020-06-28 12:19] LABS: CREATININE 1.44 mg/dL (0.7-1.3)
== END | disposition home or self-care (01) ==
LOC: RAD 11:28
PROVIDERS: ATTEND Internal Medicine Hematology & Oncology
DX: C43.9 Malignant melanoma of skin, unspecified (principal); K40.90 Unilateral inguinal hernia, without obstruction or gangrene, not specified as recurrent; K80.20 Calculus of gallbladder without cholecystitis without obstruction; K57.30 Diverticulosis of large intestine without perforation or abscess without bleeding; M51.36 Other intervertebral disc degeneration, lumbar region; I70.0 Atherosclerosis of aorta; R91.8 Other nonspecific abnormal finding of lung field; D18.09 Hemangioma of other sites
CPT/HCPCS: 36415; 71260; 74177; 82565; Q9967